=== PATIENT | female | born 1995 ===

== ENCOUNTER 2018-12-14 16:20 | Emergency (ER) | payer BC ==
[2018-12-14 16:33] VITALS: BP 114/75
--- NOTE | 2018-12-14 16:33 | UC ---
Skin Complaint HPI - HPI Summary HPI Summary: 23 yo female presents with a belly button piercing complaint. She tells me that she has had a belly button ring for the last year. Today she wore high waisted tight pants and, in the process of walking around all day, the gem of her ring pushed into her skin and she cannot remove it. Mild pain. - History of Current Complaint Chief Complaint: UCSkin Time Seen by Provider: 12/14/18 16:33 Stated Complaint: PIERCING COMPLAINT Hx Obtained From: Patient Onset/Duration: Sudden Onset Onset Severity: Mild Current Severity: Mild Pain Intensity: 2 Pain Scale Used: 0-10 Numeric - Allergy/Home Medications Allergies/Adverse Reactions: Allergies Allergy/AdvReac Type Severity Reaction Status Date / Time No Known Allergies Allergy Verified 12/14/18 16:33 Home Medications: Home Medications FLUoxetine* [PROzac*] 40 mg PO DAILY 12/14/18 [History Confirmed 12/14/18] LORazepam TAB(*) [Ativan 0.5 MG TAB (*)] 0.5 mg PO TID PRN 12/14/18 [History Confirmed 12/14/18] Levonorgestrel-Ethin Estradiol [Marlissa-28 Tablet] 1 each PO DAILY 12/14/18 [ History Confirmed 12/14/18] PMH/Surg Hx/FS Hx/Imm Hx Psychological History: Anxiety - Surgical History Surgical History: None - Family History Known Family History: Positive: None - Social History Occupation: Student Lives: Dormitory/Roommates Alcohol Use: Weekly Substance Use Type: None Smoking Status (MU): Never Smoked Tobacco Review of Systems All Other Systems Reviewed And Are Negative: Yes Constitutional: Positive: Negative Skin: Positive: Other - Belly button ring embedded in skin Respiratory: Positive: Negative Cardiovascular: Positive: Negative Neurovascular: Positive: Negative Neurological: Positive: Negative Psychological: Positive: Negative Physical Exam - Summary Physical Exam Summary: GENERAL: NAD. WDWN. No pain distress. SKIN: Umbilicus with superior portion of jewelry embedded within the skin. Mild TTP CHEST: No accessory muscle use. Breathing comfortably and in no distress. CV: Pulses intact. Cap refill <2seconds NEURO: Alert. PSYCH: Age appropriate behavior. Triage Information Reviewed: Yes Vital Signs: Initial Vital Signs Temp 98.1 F 12/14/18 16:30 Pulse 100 12/14/18 16:30 Resp 16 12/14/18 16:30 BP 114/75 12/14/18 16:30 Pulse Ox 100 12/14/18 16:30 Vital Signs Reviewed: Yes Course/Dx - Course Course Of Treatment: The procedure was explained to the pt and all questions were answered. A time out was performed, witnessed, and signed. The area was cleansed with an alcohol pad. 0.5mL of 2% lidocaine without epi was administered and good anesthetization was achieved. A #11 blade was used to make a 4mm incision at the superior piercing krista. The jewelry was able to be pushed up their the incision. Pt tolerated procedure well. Ring was removed. Will start her on bactroban cream and have her bandage the area with a band-aid until well healed. - Diagnoses Provider Diagnosis: Foreign body of abdominal wall Discharge - Sign-Out/Discharge Documenting (check all that apply): Patient Departure All imaging exams completed and their final reports reviewed: No Studies - Discharge Plan Condition: Stable Disposition: HOME Prescriptions: Mupirocin 2% CREAM* [Bactroban 2% CREAM*] 1 applic TOPICAL BID #1 tube Patient Education Materials: Soft Tissue Foreign Body (ED) Referrals: No Primary Care Phys,NOPCP [Primary Care Provider] - Additional Instructions: If you develop a fever, shortness of breath, chest pain, new or worsening symptoms - please call your PCP or go to the ED immediately. Change the band-aid daily until well healed - Billing Disposition and Condition Condition: STABLE Disposition: Home - Attestation Statements Provider Attestation: I was available for consult. This patient was seen by the [facility]. The patient was not presented to, seen by, or examined by me. -Nick
[2018-12-14] MEDS ORDERED: Lidocaine 2% PF * 5 ML VIAL INJ ONE (16:43)
== END 2018-12-14 17:00 | disposition home or self-care (01) ==
LOC: UCEAST 16:20
DX: S30.851A Superficial foreign body of abdominal wall, initial encounter (principal); W45.8XXA Other foreign body or object entering through skin, initial encounter; Y92.9 Unspecified place or not applicable; F41.9 Anxiety disorder, unspecified
CPT/HCPCS: 10120; 99202; G0463